=== PATIENT | female | born 1970 ===

== ENCOUNTER 2016-05-06 08:28 | Outpatient (CLI) | payer BC ==
--- NOTE | 2016-05-06 13:57 | Fluoroscopy Report ---
MODIFIED BARIUM SWALLOW Findings: Fluoroscopy was provided by the radiologist for speech therapy to assess the swallowing mechanism. Please refer to the formal report by speech therapy. Impression: Successful modified barium swallow.
== END 2016-05-06 08:29 | disposition home or self-care (01) ==
LOC: PT 08:28
PROVIDERS: ATTEND Internal Medicine Gastroenterology
DX: R13.12 Dysphagia, oropharyngeal phase (principal)
CPT/HCPCS: 74230; 92611; G8996; G8997; G8998